=== PATIENT | male | born 1955 | race Caucasian/White ===

== ENCOUNTER 2020-11-10 00:46 | Emergency (ER) | payer MEDICARE ==
[2020-11-10 01:02] VITALS: TEMP 99.3
[2020-11-10] MEDS: PROPOFOL 10 MG/ML 20 ML VIAL IV ONE ×2 (01:30)
--- NOTE | 2020-11-10 01:44 | ED ---
Recheck HPI - General Chief Complaint: Fall Stated Complaint: Fall Time Seen by Provider: 11/10/20 00:53 Source: patient, EMS, RN notes reviewed, old records reviewed Mode of arrival: EMS - History of Present Illness Initial Comments: This is a 65-year-old male who presents today for evaluation of known left shoulder dislocation secondary to a fall. Patient accepted in transfer for left shoulder dislocation secondary to a fall with unsuccessful relocation at outside facility. We did accept patient has transfer. Otherwise patient has no new complaints. Complaining of shoulder pain MD Complaint: other (Left anterior shoulder dislocation) -: hour(s) Returns Today for: persistent/worsening pain related to initial visit, other (Persistently dislocated left shoulder joint) Symptoms Since Prior Visit: worsening pain Associated Symptoms: none Treatments Prior to Arrival: Given Pain Meds on - Related Data Allergies Allergy/AdvReac Type Severity Reaction Status Date / Time No Known Allergies Allergy Verified 11/10/20 00:59 Review of Systems ROS Statement: Those systems with pertinent positive or pertinent negative responses have been documented in the HPI. ROS Other: All systems not noted in ROS Statement are negative. Past Medical History Past Medical History: No Reported History History of Any Multi-Drug Resistant Organisms: None Reported Past Surgical History: No Surgical Hx Reported Past Psychological History: No Psychological Hx Reported Smoking Status: Former smoker Past Alcohol Use History: None Reported Past Drug Use History: None Reported General Exam - General Exam Comments Initial Comments: Positive left shoulder dislocation General appearance: alert, in no apparent distress Head exam: Present: atraumatic, normocephalic, normal inspection Eye exam: Present: normal appearance, PERRL, EOMI. Absent: scleral icterus, conjunctival injection, periorbital swelling ENT exam: Present: normal exam, mucous membranes moist Neck exam: Present: normal inspection. Absent: tenderness, meningismus, lymphadenopathy Respiratory exam: Present: normal lung sounds bilaterally. Absent: respiratory distress, wheezes, rales, rhonchi, stridor Cardiovascular Exam: Present: regular rate, normal rhythm, normal heart sounds. Absent: systolic murmur, diastolic murmur, rubs, gallop, clicks GI/Abdominal exam: Present: soft, normal bowel sounds. Absent: distended, tenderness, guarding, rebound, rigid Extremities exam: Present: normal inspection, full ROM, normal capillary refill. Absent: tenderness, pedal edema, joint swelling, calf tenderness Back exam: Present: normal inspection Neurological exam: Present: alert, oriented X3, CN II-XII intact Psychiatric exam: Present: normal affect, normal mood Skin exam: Present: warm, dry, intact, normal color. Absent: rash Course Vital Signs 11/10/20 11/10/20 11/10/20 00:48 01:21 01:29 Temperature 99.3 F Pulse Rate 97 91 93 Respiratory 17 18 15 Rate Blood Pressure 175/109 167/86 167/86 O2 Sat by Pulse 97 100 96 Oximetry - Reevaluation(s) Reevaluation #1: 11/10/20 01:41 Medical records reviewed 11/10/20 01:41 Spoke with transferring physician Reevaluation #2: 11/10/20 01:41 Spoke with patient here in the ER agrees to have procedural sedation for shoulder dislocation reviewed reduction Procedures - [place] Protocol (Time Out) Procedure Performed:: left shoulder reduction Performing Provider: Reymundo Alvarado Nurse: Sara Perez Respiratory Therapist: Sydnie Silver Patient Identification (2 identifiers required): Chart, Verbal, Arm Band, Name, Birthdate, Medical Record Number, Social Security Number 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: Identity, Site, Procedure, Consent Site: left shoulder Site Marked: Yes Site Verified With Patient/Guardian: Yes Final Confirmation: Procedure, Site, Laterality, Patient Position, Radiographs, Confirmed w/Provider - Orthopedic Joint Reduction Joint #1 Consent Obtained: verbal consent Side: left Joint Reduction Location: shoulder Analgesia: procedural sedation Shoulder Technique Used (if applicable): traction/counter-traction, external rotation Post-Reduction Neuro Exam: intact Post-Reduction Vascular Exam: intact Post Reduction X-Ray Obtained: Yes Post Reduction X-Ray Results: reduced Splint Applied: Yes Patient Tolerated Procedure: well - Procedural Sedation Procedural Sedation Start Time: 01:30 Procedural Sedation Stop Time: 02:10 Indications: fracture/dislocation reduction ASA Class: I Mallampati Airway Score: 1 Preparation: hospital monitor applied, pulse oximeter, capnometry used, supplemental O2 applied, reversal agents at bedside, IV secured IV Propofol Dose (mgs): 100 Complications: none Interventions: oxygen applied Patient Tolerated Procedure: well Medical Decision Making - Medical Decision Making 65 male presents today for evaluation of left anterior shoulder dislocation. Patient has shoulder relocated here in the ER and can be discharged home Disposition Clinical Impression: Fall, Dislocation of left shoulder joint Disposition: HOME SELF-CARE Condition: Good Instructions (If sedation given, give patient instructions): Moderate Sedation (ED), Shoulder Dislocation (ED) Is patient prescribed a controlled substance at d/c from ED?: No Referrals: Troy Bullock MD [Primary Care Provider] - 1-2 days
--- NOTE | 2020-11-10 02:05 | XR ---
EXAM: XR Left Shoulder Complete, 2 or More Views CLINICAL HISTORY: ITS.REASON XR Reason: post reduction TECHNIQUE: Two or more views of the left shoulder. COMPARISON: No relevant prior studies available. FINDINGS: Limitations: Single frontal radiograph. Bones/joints: Successful reduction of previously seen left anterior shoulder dislocation. No acute fracture. Degenerative changes of the acromioclavicular joint. Osteopenia. Soft tissues: No significant abnormality. IMPRESSION: Successful reduction of previously seen left anterior shoulder dislocation. No acute fracture.
[2020-11-10 02:16] VITALS: BP 145/83; PULSE 86; RESP 16
== END 2020-11-10 02:24 | disposition home or self-care (01) ==
LOC: EC 00:46 → SUPCPDRO 00:46 → EC 02:24
DX: S43.015A Anterior dislocation of left humerus, initial encounter (principal); Z87.891 Personal history of nicotine dependence; W19.XXXA Unspecified fall, initial encounter
CPT/HCPCS: 73020; 99284; 23650; 99152; 99153 ×2; J2704

== ENCOUNTER → 2020-12-19 | Outpatient (CLI) | payer MEDICARE ==
--- NOTE | 2020-12-19 15:46 | XR ---
EXAMINATION TYPE: XR ankle complete RT DATE OF EXAM: 12/19/2020 COMPARISON: NONE HISTORY: Pain TECHNIQUE: Frontal, lateral and oblique images of the right ankle are obtained. COMPARISON: None. FINDINGS: Nonacute fracture noted of the distal fibula with callus formation seen. Fracture line cont inues to be evident. No additional fracture seen. Soft tissue swelling identified. IMPRESSION: Nonacute fracture noted of the distal fibula with callus formation seen.
== END | disposition home or self-care (01) ==
LOC: RADXRMAIN 14:27
PROVIDERS: ATTEND Family Medicine
DX: S82.831D Other fracture of upper and lower end of right fibula, subsequent encounter for closed fracture with routine healing (principal)

== ENCOUNTER → 2024-03-11 | Outpatient (CLI) | payer MEDICARE ==
--- NOTE | 2024-03-11 16:01 | XR ---
EXAMINATION TYPE: XR shoulder complete 3 views BILAT DATE OF EXAM: 03/11/2024 COMPARISON: Left shoulder 11/10/2020 HISTORY: 68-year-old male M25.50, bilateral shoulder pain. TECHNIQUE: 3 views each side FINDINGS: Left: Mild degenerative change AC joint. There is inferior acromial spurring which may been in direct sign of underlying rotator cuff tear. Additional slightly rounded contour of the greater tuberosity. Mild degenerative spurring inferior humeral head. No acute fracture, subluxation, dislocation. Right: Moderate degenerative change AC joint. 7 inferior acromial spurring is present here as well. I rregularity at the greater tuberosity and mild degenerative spurring inferior humeral head. IMPRESSION: 1. Both shoulders show inferior acromial spurring which may be an indirect sign of underlying rotator cuff tears. 2. 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 3. Additional mild degenerative spurring at the glenohumeral joints.
== END | disposition home or self-care (01) ==
LOC: RADXRMAIN 14:58
PROVIDERS: ATTEND Family Medicine
DX: M19.011 Primary osteoarthritis, right shoulder (principal); M19.012 Primary osteoarthritis, left shoulder; M25.811 Other specified joint disorders, right shoulder; M25.812 Other specified joint disorders, left shoulder; F11.20 Opioid dependence, uncomplicated

== ENCOUNTER → 2024-05-25 | Outpatient (CLI) | payer MEDICARE ==
[2024-05-25 18:48] LABS: Basophils # (A) 0.08 X 10*3/uL (0.00-0.10); Eosinophils % (A) 2.5 %; HCT 40.4 % (39.6-50.0); HGB 12.7 g/dL (13.0-17.0); Lymphocytes # (A) 1.88 X 10*3/uL (0.90-5.00); MCH 27.7 pg (27.0-32.0); MCHC 31.4 g/dL (32.0-37.0); Mean Platelet Volume 10.8 FL (9.5-12.2); Monocytes # (A) 0.75 X 10*3/uL (0.20-1.00); Monocytes % (A) 9.2 %; NRBC Per 100 WBC 0 X 10*3/uL (0.00-0.01); Neutrophils # (A) 5.23 X 10*3/uL (1.80-7.70); Neutrophils % (A) 64.1 %; Platelet Count 266 X 10*3/uL (140-440); RBC 4.59 X 10*6/uL (4.40-5.60); RDW 15.8 % (11.5-14.5); WBC 8.16 X 10*3/uL (4.50-10.00)
[2024-05-25 19:13] LABS: ALT 8 U/L (10-49); AST 16 U/L (14-35); Albumin 4.1 g/dL (3.8-4.9); Albumin/Globulin Ratio 1.17 Ratio (1.60-3.17); Alkaline Phosphatase 91 U/L (41-126); Blood Urea Nitrogen 11.7 mg/dL (9.0-27.0); Calcium 9.7 mg/dL (8.7-10.3); Carbon Dioxide 31.4 mmol/L (21.6-31.8); Chloride 96 mmol/L (96-109); Chol/HDL Ratio 4.65 Ratio; Globulin 3.5 g/dL (1.6-3.3); Glucose 96 mg/dL (70-110); LDL Cholesterol,Calculated 112.9 mg/dL (0.0-131.0); Sodium 140 mmol/L (135-145); Total Bilirubin 0.4 mg/dL (0.3-1.2); Total Protein 7.6 g/dL (6.2-8.2)
== END | disposition home or self-care (01) ==
LOC: LABWHC1 14:23
PROVIDERS: ATTEND Family Medicine
DX: I10 Essential (primary) hypertension (principal)
CPT/HCPCS: 36415; 80053; 80061; 85025